=== PATIENT | female | born 1970 | race Caucasian/White ===

== ENCOUNTER 2017-09-17 21:33 | Emergency (ER) | payer OTHER ==
[2017-09-17 21:51] VITALS: BP 132/92; PULSE 73; TEMP 98.9; BMI 32.1
--- NOTE | 2017-09-17 22:25 | PDOC ---
History of Present Illness - General Chief Complaint: Migraine Headache Stated Complaint: MIGRAINE Time Seen by Provider: 09/17/17 21:37 - History of Present Illness Initial Comments: This 47-year-old woman, otherwise healthy, presents with 3 day history of headache. Patient describes pain as being in the frontal area of her head extending to the mid face, bilaterally. Pain can intermittently be pulsatile but is generally steady. She has been photophobic and mildly nauseated most of the time that she has had the headache. Patient states that she attempted pain control with acetaminophen on the first day of her headache with ibuprofen for the last 2 days. She reports brief relief of pain and then recurrence of the headache. No history of head trauma. Patient states that she had headaches in the past when her pressure was elevated; since change in diet and weight loss, her blood pressure has been regulated and she does not suffer from headaches. No recent upper respiratory infection/sinusitis/fever/chills/stiff neck. She states that just prior to the onset of the headache, she ate a meal with high sodium content along with 2 glasses of beer. Patient normally is does not have these things in her diet. Past History - Past Medical History Allergies/Adverse Reactions: Allergies Allergy/AdvReac Type Severity Reaction Status Date / Time No Known Allergies Allergy Unverified 09/17/17 21:51 Home Medications: Ambulatory Orders NK [No Known Home Medication] 09/17/17 COPD: No Other medical history: DENIES - Suicide/Smoking/Psychosocial Hx Smoking History: Never smoked Review of Systems - Review of Systems Able to Perform ROS?: Yes Comments:: 12 point review of systems is negative except for what is noted in the history of present illness *Physical Exam - Vital Signs Last Vital Signs Temp Pulse Resp BP Pulse Ox 98.9 F 73 16 132/92 96 09/17/17 21:34 09/17/17 21:34 09/17/17 21:34 09/17/17 21:34 09/17/17 21:34 - Physical Exam Comments: GENERAL: Adult female, alert and oriented 3, in mild distress secondary to headache HEAD: Normal with no signs of trauma. EYES: PERRLA, EOMI, sclera anicteric, conjunctiva clear. ENT: Ears normal, nares patent, oropharynx clear without exudates. Dry mucous membranes. No facial tenderness noted NECK: Normal range of motion, supple without lymphadenopathy, JVD, or masses. LUNGS: Breath sounds equal, clear to auscultation bilaterally. No wheezes, and no crackles. HEART:Regular rate and rhythm, normal S1 and S2 without murmur, rub or gallop. ABDOMEN:.normal bowel sounds No guarding,tenderness or rebound.No masses No distention. EXTREMITIES: Normal range of motion, no edema. No clubbing or cyanosis. No erythema, or tenderness. NEUROLOGICAL: Cranial nerves II through XII grossly intact. Normal speech. No focal neurological deficits. MUSCULOSKELETAL: Back non-tender to palpation, no CVA tenderness SKIN: Warm, Dry, normal turgor, no rashes or lesions noted. Progress Note - Progress Note Progress Note: Because the patient who has had a history of headaches in the past but none in recent years, describes this headache is "the worst in her life", noncontrast head CT was performed to evaluate for acute intracranial pathology. Noncontrast head CT shows no evidence of acute intracranial bleed/masses or other pathology. While results for the head CT were pending, patient given 650 mg of acetaminophen by mouth. Patient reported little relief in pain after acetaminophen. Intravenous line was established after head CT revealed no evidence of bleed or masses. Patient given Toradol 30 mg IV and IV normal saline infusion started. After approximately 30 minutes, patient reported marked relief in her headache. She states that she is now comfortable and drowsy and wishes to go home. There is been no further nausea or other new symptom. Patient discharged with instructions to take acetaminophen/ibuprofen as needed for recurrent headaches. Patient has never been evaluated by a neurologist for her headaches in the past. She has been given Dr. John's referral information ; she was advised to call the office tomorrow to make an appointment within the next several days. Meanwhile, she should also follow-up with her general medical doctor; she should return to the emergency room if she has recurrent severe headache or experiences vomiting. *DC/Admit/Observation/Transfer Diagnosis at time of Disposition: Headache Qualifiers: Headache type: tension-type Headache chronicity pattern: acute headache Intractability: not intractable Qualified Code(s): G44.209 - Tension-type headache, unspecified, not intractable - Discharge Dispostion Disposition: HOME Condition at time of disposition: Stable - Referrals Referrals: Mateo John MD [Staff Physician] - Call tomorrow - Patient Instructions Printed Discharge Instructions: DI for Headache Additional Instructions: Rest; drink plenty of fluids Ibuprofen/acetaminophen as needed for headache Follow-up with (neurologist) within the next 5 days (call office tomorrow for appointment) Return to ER if you have persistent severe headache or vomiting - Post Discharge Activity
[2017-09-17] MEDS ORDERED: ACETAMINOPHEN 325 MG TABLET (FP) PO ONE (22:46)
[2017-09-17] MEDS ORDERED: ACETAMINOPHEN 325 MG TABLET (FP) ONE (22:50)
[2017-09-17] MEDS ORDERED: KETOROLAC TROMETHAMINE 30 MG/1 ML VIAL IVPUSH ONE (23:21)
[2017-09-17] MEDS ORDERED: KETOROLAC TROMETHAMINE 30 MG/1 ML VIAL ONE (23:24)
== END 2017-09-17 23:57 | disposition home or self-care (01) ==
LOC: FER 21:33
PROC: 3E0333Z Introduction of Anti-inflammatory into Peripheral Vein, Percutaneous Approach (ICD-10-PCS; principal; 2017-09-17)
DX: G44.209 Tension-type headache, unspecified, not intractable (principal)
CPT/HCPCS: 70450-TC; 99282-25

== ENCOUNTER 2018-05-24 09:10 | Emergency (ER) | payer OTHER ==
--- NOTE | 2018-05-24 09:17 | PDOC ---
History of Present Illness - History of Present Illness Initial Comments: 05/24/18 09:17 The patient is a 48 year old female with no significant PMH who presents to our ED after a fall. Patient was getting into her car when she stepped on a patch of ice and inverted her right ankle. Patient fell to her knees. Denies any head trauma or LOC. Now complaining of R ankle pain. States the pain is like she is having a baby in her ankle and her toes are numb. The patient denies chest pain and shortness of breath. The patient denies abdominal pain, nausea/vomiting, diarrhea/constipation. The patient denies dysuria/hematuria, increased urgency/frequency. NKDA Surgical: C-S Social: non-smoker, social alcohol, denies other toxic habits PMD: Dr. Lr <Tiffanie Wayne - Last Filed: 05/24/18 11:39> <Ayla Lyman - Last Filed: 05/24/18 14:10> - General Chief Complaint: Injury Stated Complaint: RIGHT ANKLE INJURY Time Seen by Provider: 05/24/18 09:17 Past History - Past Medical History COPD: No - Suicide/Smoking/Psychosocial Hx Smoking History: Never smoked <Tiffanie Wayne - Last Filed: 05/24/18 11:39> <Ayla Lyman - Last Filed: 05/24/18 14:10> - Past Medical History Allergies/Adverse Reactions: Allergies Allergy/AdvReac Type Severity Reaction Status Date / Time No Known Allergies Allergy Verified 05/24/18 09:15 Home Medications: Ambulatory Orders NK [No Known Home Medication] 09/17/17 Review of Systems - Review of Systems Constitutional: No: Chills, Fever HEENTM: No: Recent change in vision, Throat Pain Respiratory: No: Cough, Shortness of Breath Cardiac (ROS): No: Chest Pain, Lightheadedness, Palpitations, Syncope ABD/GI: No: Constipated, Diarrhea, Nausea, Vomiting Musculoskeletal: Yes: Other (R ankle pain and numbness) <Tiffanie Wayne - Last Filed: 05/24/18 11:39> *Physical Exam - Physical Exam General Appearance: Yes: Nourished, Appropriately Dressed HEENT: positive: Normal Voice, Hearing Grossly Normal Neck: positive: Trachea midline, Supple Respiratory/Chest: positive: Lungs Clear, Normal Breath Sounds Cardiovascular: positive: S1, S2 Gastrointestinal/Abdominal: positive: Normal Bowel Sounds, Soft Extremity: positive: Normal Capillary Refill, Other (R lateral malleolus tenderness, full foot/ankle ROM w/pain, 2+ DP pulse, sensation intact) Integumentary: positive: Normal Color, Dry, Warm Neurologic: positive: Fully Oriented, Alert <Tiffanie Wayne - Last Filed: 05/24/18 11:39> - Vital Signs Last Vital Signs Temp Pulse Resp BP Pulse Ox 97.7 F 94 H 16 165/97 99 05/24/18 09:14 05/24/18 09:14 05/24/18 09:14 05/24/18 09:14 05/24/18 09:14 <Ayla Lyman - Last Filed: 05/24/18 14:10> Moderate Sedation - Procedure Monitoring Vital Signs: Procedure Monitoring Vital Signs Temperature 97.7 F 05/24/18 09:14 Pulse Rate 94 H 05/24/18 09:14 Respiratory Rate 16 05/24/18 09:14 Blood Pressure 165/97 05/24/18 09:14 O2 Sat by Pulse Oximetry (%) 99 05/24/18 09:14 <Ayla Lyman - Last Filed: 05/24/18 14:10> Procedures - Splinting Splint Location: Right: Ankle Pre-Proc Neuro Vasc Exam: normal Pre-Made Type: aircast Post-Proc Neuro Vasc Exam: normal, unchanged from pre-exam Progress: Pt crutch trained. <Ayla Lyman - Last Filed: 05/24/18 14:10> ED Treatment Course - Medications Given in the ED: ED Medications Discontinued Medications Generic Name Dose Route Start Last Admin Trade Name Freq PRN Reason Stop Dose Admin Ibuprofen 800 mg 05/24/18 09:18 05/24/18 09:27 Motrin - PO 05/24/18 09:19 800 mg ONCE ONE Administration <Ayla Lyman - Last Filed: 05/24/18 14:10> Medical Decision Making - Medical Decision Making 05/24/18 09:21 48 year old female presents to our ED following a slip and fall on the ice. VS unremarkable. PE shows 2+ DP pulse, ROM with pain, lateral malleolus tenderness. Unable to bear weight. Will give Motrin and obtain ankle/foot XR. Reassess. 05/24/18 09:29 05/24/18 10:00 My read of XR shows no fracture/avulsion. Formal read pending. 05/24/18 10:02 Patient reassessed @ bedside Symptomatically improved 05/24/18 11:35 XR negative for acute fracture/avulsion. Will discharge home with supportive care (splint, crutches), return precautions. I discussed the physical exam findings, ancillary test results and final diagnoses with the patient. I answered all of the patient's questions. The patient was satisfied with the care received and felt comfortable with the discharge plan and treatment plan. The patient will return to the Emergency Department with any new, persistent or worsening symptoms. <Tiffanie Wayne - Last Filed: 05/24/18 11:39> *DC/Admit/Observation/Transfer <Tiffanie Wayne - Last Filed: 05/24/18 11:39> - Discharge Dispostion Decision to Admit order: No <Ayla Lyman - Last Filed: 05/24/18 14:10> Diagnosis at time of Disposition: Ankle sprain Qualifiers: Encounter type: initial encounter Involved ligament of ankle: unspecified ligament Laterality: right Qualified Code(s): S93.401A - Sprain of unspecified ligament of right ankle, initial encounter - Discharge Dispostion Disposition: HOME Condition at time of disposition: Stable - Referrals Referrals: Lino Bertrand MD [Staff Physician] - - Patient Instructions Printed Discharge Instructions: DI for Ankle Sprain Additional Instructions: An x-ray of your foot and ankle was negative for any fracture. You can take Motrin (up to 3200 mg daily) alternating with Tylenol (up to 4000 mg daily) for your pain. Should your pain persist please follow up with orthopedic surgery (contact information provided) or you can call your insurance company for a list of doctors. Return to the Emergency Department for any new/worsening/concerning symptoms. - Post Discharge Activity Forms/Work/School Notes: Back to Work
[2018-05-24] MEDS ORDERED: IBUPROFEN 400 MG TABLET (FP) PO ONE ×2 (09:18→09:26)
[2018-05-24 09:19] VITALS: BP 165/97; PULSE 94; TEMP 97.7; BMI 34.3
--- NOTE | 2018-05-24 10:43 | PDOC ---
Attending Attestation - Resident Resident Name: Tiffanie Wayne - ED Attending Attestation I have performed the following: I have examined & evaluated the patient, The case was reviewed & discussed with the resident, I agree w/resident's findings & plan, Exceptions are as noted - HPI HPI: 48 yo F presents with R ankle pain s/p inversion injury. No other injuries, no open wounds. She is having difficulty walking due to pain. - Physicial Exam PE: GENERAL: Awake, alert, and fully oriented, in no acute distress HEAD: No signs of trauma EYES: PERRLA, EOMI, sclera anicteric, conjunctiva clear ENT: Auricles normal inspection, hearing grossly normal, nares patent, oropharynx clear without exudates. Moist mucosa NECK: Normal ROM, supple, no lymphadenopathy, JVD, or masses LUNGS: Breath sounds equal, clear to auscultation bilaterally. No wheezes, and no crackles HEART: Regular rate and rhythm, normal S1 and S2, no murmurs, rubs or gallops ABDOMEN: Soft, nontender, normoactive bowel sounds. No guarding, no rebound. No masses EXTREMITIES: R ankle with tenderness and swelling over the distal tip of the fibula. Dec ROM of the ankle due to pain. Remainder of extremities wnl. Normal range of motion, no edema. No clubbing or cyanosis. No cords, erythema, or tenderness NEUROLOGICAL: Cranial nerves II through XII grossly intact. Normal speech. Motor and sensation intact. +Antalgic gait. SKIN: Warm, Dry, normal turgor, no rashes or lesions noted. - Medical Decision Making XR negative for fx. Patient placed in an aircast and crutch trained. Stable for DC home.
== END 2018-05-24 11:42 | disposition home or self-care (01) ==
LOC: FER 09:10
DX: S93.401A Sprain of unspecified ligament of right ankle, initial encounter (principal); W00.0XXA Fall on same level due to ice and snow, initial encounter; Y93.89 Activity, other specified; Y92.9 Unspecified place or not applicable
CPT/HCPCS: 73610-TC-RT-FY; 73630-TC-RT-FY; 99282-25

== ENCOUNTER 2023-01-21 08:48 | Emergency (ER) | payer SELFPAY ==
[2023-01-21] MEDS ORDERED: FLUORESCEIN NA 1 EA STRIP OD ONE (08:52)
[2023-01-21] MEDS ORDERED: TETRACAINE 0.5% HCL 0.6ML DROPPER.BOTTLE OD ONE (08:52)
[2023-01-21 08:57] VITALS: BP 187/101; PULSE 89; RESP 16; TEMP 97.6; BMI 37.0
[2023-01-21] MEDS ORDERED: TETRACAINE 0.5% OPHTH SOLN 2 ML BOTTLE ONE (08:57)
[2023-01-21] MEDS ORDERED: FLUORESCEIN NA 1 EA STRIP ONE (08:58)
== END 2023-01-21 09:24 | disposition home or self-care (01) ==
LOC: FER 08:48
DX: S05.01XA Injury of conjunctiva and corneal abrasion without foreign body, right eye, initial encounter (principal); H57.11 Ocular pain, right eye; H53.8 Other visual disturbances; H57.89 Other specified disorders of eye and adnexa; W22.8XXA Striking against or struck by other objects, initial encounter
CPT/HCPCS: 99283-25